=== PATIENT | female | born 1930 | race Caucasian/White ===

== ENCOUNTER 2018-03-23 11:23 | Emergency (ER) | payer MEDICARE ==
[~2018-03-23] VITALS: Ht 149.9 cm; Wt 60.0 kg
[~2018-03-23 11:23] MED LIST: ASPIRIN LOW81 M1 PO; ATORVASTATI80 MG/TAB PO; CALCIUM + D600 MG PO; CHONDROITIN PO; CLOPIDOGREL75 MG PO; FLEXERIL PO; FOLIC ACID1 MG PO; LORTAB 10-325 M1 TAB PO; LOSARTAN POT25 MG PO; METOPROLOL SUCC50 MG PO; MULTIVITAMIN PO; RANITIDINE150 MG PO; ZOCOR20 M1 PO
[2018-03-23 12:30] LABS: URINE BILIRUBIN - DIPSTICK NEGATIVE (NEGATIVE); URINE BLOOD DIPSTICK MODERATE (NEGATIVE); URINE COLOR YELLOW; URINE GLUCOSE - DIPSTICK NEGATIVE (NEGATIVE); URINE KETONE NEGATIVE (NEGATIVE); URINE NITRITE - DIPSTICK NEGATIVE (Negative); URINE PH 6.5 (4.5-8.0); URINE PROTEIN - DIPSTICK NEGATIVE (NEG-TRACE); URINE SPECIFIC GRAVITY <=1.005
[2018-03-23 12:31] LABS: URINE LEUK ESTERASE MODERATE (NEGATIVE)
[2018-03-23 12:32] LABS: URINE BACTERIA MODERATE hpf; URINE EPITHELIAL CELLS MANY EPI/hpf (0-FEW)
[2018-03-23] MEDS ORDERED: CEPHALEXIN500 M1 PO (12:48)
[2018-03-23] MEDS ORDERED: CYCLOBENZAPR5 MG PO (12:49)
[2018-03-23 12:52] VITALS: BP 165/77
== END 2018-03-23 13:05 | disposition home or self-care (01) ==
LOC: ED 11:23
PROVIDERS: Family Medicine
DX: M62.838 Other muscle spasm (principal); N39.0 Urinary tract infection, site not specified; B96.20 Unspecified Escherichia coli [E. coli] as the cause of diseases classified elsewhere; I10 Essential (primary) hypertension; I25.2 Old myocardial infarction; E78.00 Pure hypercholesterolemia, unspecified; M10.9 Gout, unspecified; M19.90 Unspecified osteoarthritis, unspecified site; F32.9 Major depressive disorder, single episode, unspecified